=== PATIENT | female | born 1985 ===

== ENCOUNTER 2021-04-20 06:01 | Day surgery (SDC) | payer OTHER ==
[2021-04-20 06:35] LABS: Absolute Lymphocytes (CBC) 2.7 K/uL (0.7-4.9); Basophils % 0.6 % (0-1.3); Hematocrit 41.5 % (36.0-45.0); Lymphocytes % 28.4 % (15.3-44.8); MPV 9.1 fL (7.6-11.3); RBC Red Blood Cell Count 4.57 M/uL (3.86-4.86)
[2021-04-20] MEDS ORDERED: GLYCOPYRROLATE 0.2 MG/ML SYR ONE ×2 (06:37→08:31)
[2021-04-20] MEDS ORDERED: MIDAZOLAM HCL 2 MG/2 ML INJ ONE ×2 (06:37→08:44)
[2021-04-20] MEDS ORDERED: FENTANYL CITR 100 MCG/2 ML ONE (06:37)
[2021-04-20] MEDS ORDERED: propofoL 200 MG/20 ML VIAL IV ONE (06:37)
[2021-04-20] MEDS ORDERED: ROCURONIUM 50 MG/5 ML VIAL IV ONE (06:37)
[2021-04-20] MEDS ORDERED: LIDOCAINE 2% MPF 5 ML VIAL ONE (06:37)
[2021-04-20 06:44] LABS: Specific Gravity > 1.030 (1.005-1.030)
[2021-04-20] MEDS ORDERED: Ringers Lactate 1,000 ML IV ONE (06:45)
[2021-04-20] MEDS ORDERED: CEFOXITIN/NS 1gm 1 GM/50 ML BAG ONE (06:46)
[2021-04-20 06:52] LABS: ALT/SGPT 14 U/L (12-78); AST/SGOT 8 U/L (15-37); Albumin 3.4 g/dL (3.4-5.0); Alkaline Phosphatase 65 U/L (45-117); Amylase 46 U/L (25-115); BUN Blood Urea Nitrogen 10 mg/dL (7-18); Bicarbonate 23 mmol/L (21-32); Bilirubin Direct 0.1 mg/dL (0-0.2); Bilirubin Total 0.4 mg/dL (0.2-1.0); Glucose Level 84 mg/dL (74-106); Lipase 97 U/L (73-393); Potassium 3.8 mmol/L (3.5-5.1); Protein, Total 6.7 g/dL (6.4-8.2); Sodium Level 144 mmol/L (136-145)
--- NOTE | 2021-04-20 07:20 | RAD REPORT ---
EXAM DESCRIPTION: RAD - Chest Pa And Lat (2 Views) - 04/20/2021 6:36 am CLINICAL HISTORY: PRE OP COMPARISON: No comparisons FINDINGS: Lines: None. Lungs: No evidence of edema or pneumonia. Pleural: No significant pleural effusions or pneumothorax. Cardiac: The heart size is within normal limits. Bones: No acute fractures. Other: IMPRESSION: No acute cardiopulmonary disease.
[2021-04-20] MEDS ORDERED: ONDANSETRON 4 MG/2 ML VIAL ONE (08:05)
[2021-04-20] MEDS ORDERED: dexAMETHasone 10 MG/ML VIAL ONE (08:05)
[2021-04-20] MEDS ORDERED: KETOROLAC 30 MG/ML INJ ONE (08:06)
--- NOTE | 2021-04-20 08:29 | P.BOP ---
Preoperative diagnosis: acute cholecystitis, symptomatic cholelithiasis Postoperative diagnosis: same Primary procedure: Laparoscopic cholecystectomy Estimated blood loss: <10cc Specimen: gb Findings: as above Anesthesia: General Complications: None Transferred to: Recovery Room Condition: Good
[2021-04-20] MEDS ORDERED: NEOSTIGMINE 1 MG/ML -5 ML ONE (08:39)
[2021-04-20] MEDS: HYDROMORPHONE HCL 1 MG/ML INJ ONE ×2 (08:54→09:02)
[2021-04-20 09:15] VITALS: O2SAT 100
[2021-04-20 09:38] VITALS: BP 115/51; TEMP 97
[2021-04-20] MEDS ORDERED: CODEINE 30MG/APAP 300MG TAB ONE (09:46)
--- NOTE | 2021-04-20 15:48 | OP ---
Date of Procedure: 04/20/2021 Surgeon: Eligio Pena MD Preoperative Diagnoses: 1.Acute cholecystitis. 2.Symptomatic cholelithiasis. Postoperative Diagnoses: 1.Acute cholecystitis. 2.Symptomatic cholelithiasis. Procedure: Laparoscopic cholecystectomy. Anesthesia: General plus local. Estimated Blood Loss: Less than 10 cc. Indication: This is a case of a female, who comes to us with above diagnosis. Fully explained the b enefits, alternatives, and risks of laparoscopic, possible open cholecystectomy, which include, but n ot limited to infection, bleeding, damage to adjacent structures, anesthesia complication, cholelithi asis, bile leak, pancreatitis, PR, and even . She also understands this may not relieve the sym ptoms. She might need more than one surgical intervention. She understood and signed the consent. Description Of Procedure: The patient was brought to the operating room and placed in supine positio n. Anesthesia was done without complication. Abdominal area was prepped and draped in a sterile fas hion. Marcaine 0.5% was injected for local anesthetic followed by sharp incision of the skin in the infraumbilical region. Incision was carried down to fascia, which was opened under direct vision. P eritoneum was encountered, opened under direct vision. Vicryl #1 placed inside the fascia. Santiago t rocar was carefully introduced. Pneumoperitoneum was obtained. I placed 3 more trocars, 5 mm each o ne of them in the epigastric and right upper quadrant area under direct visualization. This allowed me to put a grasper in the fundus of the gallbladder, another grasper in the infundibulum, retracting the gallbladder in the inferolateral fashion, exposing the triangle of Calot, obtaining critical vie w. The cystic duct and cystic artery were clearly isolated, freed circumferentially, and a connectio n between those and the gallbladder was clearly identified. I proceeded to ligate those by using at least 3 clips proximal, one clip distal, ligation in the middle. Same was done with the cystic arter y. No bile leak. No bleeding. The gallbladder was removed from liver using Bovie cauterizer and re moved from abdominal cavity using an EndoCatch through the umbilical incision. The area was inspecte d once again. No bile leak. No bleeding. At that moment, I proceeded to remove the trocars under d irect vision. Deflated pneumoperitoneum. Closed the fascia with #1 Vicryl. Irrigated subcutaneous tissue, closed that with 3-0 chromic and skin in a subcuticular fashion with 3-0 chromic and Steri-St rips on top. Sponge count and instrument count were correct. The patient tolerated the procedure we ll. The patient was sent to Recovery in stable condition. Disposition: Home. Activity: As tolerated. No heavy lifting. Plan: Follow up in my office in one week. Call for appointment at #[phone]. Keep area dry for 48 hours, then may shower. Keep Steri-Strip intact. Medications: Include Tylenol No. 3 q.4 hours p.r.n. pain; Augmentin 875 p.o. q.12; Zofran 4 q.6h. p. r.n. nausea. YG/ANNELIESE Voice ID: [id number] Report ID: [id number]
== END 2021-04-20 10:10 | disposition home or self-care (01) ==
LOC: OR 06:01
PROVIDERS: ATTEND Surgery
PROC: 0FT44ZZ Resection of Gallbladder, Percutaneous Endoscopic Approach (ICD-10-PCS; principal; 2021-04-20 07:30)
DX: K80.10 Calculus of gallbladder with chronic cholecystitis without obstruction (principal); Z20.822 Contact with and (suspected) exposure to COVID-19
CPT/HCPCS: 85025; 80048; 36415; 82150; 81025; 80076; 88304; 83690; 71046; 47562; U0003; J2704; J2250 ×2; J3010; J1100; J1170; J2710; J7120; J0694; J2405